=== PATIENT | male | born 1955 | race Two or more races ===

== ENCOUNTER 2021-11-07 11:06 | Outpatient (CLI) | payer OTHER | END 2021-11-07 11:12 | disposition home or self-care (01) | LOC: RAD 11:06 | PROVIDERS: ATTEND Orthopaedic Surgery | DX: M25.561 Pain in right knee (principal); M25.562 Pain in left knee ==

== ENCOUNTER 2021-11-23 10:50 | Outpatient (CLI) | payer OTHER | END 2021-11-23 11:04 | disposition home or self-care (01) | LOC: MRI 10:50 | PROVIDERS: ATTEND Orthopaedic Surgery | DX: M25.562 Pain in left knee (principal); S83.201A Bucket-handle tear of unspecified meniscus, current injury, left knee, initial encounter ==